=== PATIENT | male | born 1980 | race Caucasian/White ===

== ENCOUNTER → 2022-02-15 | Outpatient (CLI) | payer BC ==
[~2022-02-15] MED LIST: ADVIL200 MG PO; CIPRO 500MG TA500 MG PO; NO HOME MEDICATIONS; NORCO 325 MG-51 TAB PO; PERCOCET 5/321 UDTAB PO; PHENERGAN 25 TA25 MG PO; PHENERGAN25 MG RC; PYRIDIUM 100MG100 MG PO
== END ==
LOC: COL.RAD 10:59
DX: M51.37 Other intervertebral disc degeneration, lumbosacral region (principal); N20.0 Calculus of kidney; S32.050A Wedge compression fracture of fifth lumbar vertebra, initial encounter for closed fracture; M46.1 Sacroiliitis, not elsewhere classified